=== PATIENT | female | born 1960 | race Caucasian/White ===

== ENCOUNTER → 2017-02-03 | Outpatient (CLI) | payer OTHER ==
[~2017-02-03] MED LIST: AMOXIL500 MG PO; ATIVAN1 MG PO; BENTYL10 MG; BENTYL10 MG PO; BRIN10TA PO; CIPRO500 MG PO; CLARITIN-D 10 M1 T21 PO; COMPAZINE10 M1 PO; COMPAZINE10 MG; CQ 10 PO; CYCLOBENZAPRINE10 MG PO; DEXILANT60 M1 PO; EFFEXOR XR75 MG PO; EFFEXOR-XR150 MG; FLAGYL500 MG PO; FLEXERIL10 MG PO; FOLIC ACID800 MCG PO; FOSAMAX70 M1 PO; HYDROCHLOROTHIA25 MG; IBU-200200 MG PO; LIDODERM 5% PATC1 EA PO; LIPITOR80 MG PO; LOMOTIL 0.025 M1 TA1 PO; MELATONIN10 M3 PO; MOBIC15 MG PO; MOTRIN800 MG PO; NORCO 5-325 TA1 EACH PO; Oscal,Oyster S500 MG PO; PERCOCET 325 MG1 TA2 PO; PERCOCET 325 MG1 TA5 PO; PRISTIQ50 MG PO; PROTONIX40 MG PO; RELIEF PO; RESTORIL30 MG; TESSALON PERLE200 MG PO; TRAMADOL HCL50 MG; TRAMADOL HCL50 MG PO; TRAZODO50 MG PO; TUMS500 MG PO; VITAMIN B121000 MC2 PO; VITAMIN D-32000 UNIT PO; VITAMIN D50000 I1 PO; VOLTAREN50 M1 PO; XANAX1 MG; ZANTAC 150150 MG PO; ZANTAC150 MG PO; [UNRECOGNIZED DRUG - OTHER]; [UNRECOGNIZED DRUG - OTHER] PO
== END | disposition home or self-care (01) ==
LOC: RAD 11:08
DX: M47.896 Other spondylosis, lumbar region (principal); M47.897 Other spondylosis, lumbosacral region; M47.892 Other spondylosis, cervical region; M54.6 Pain in thoracic spine; M25.522 Pain in left elbow; M25.521 Pain in right elbow

== ENCOUNTER 2017-04-08 15:34 | Inpatient (IN) | payer OTHER ==
[~2017-04-08] VITALS: Ht 165.1 cm; Wt 70.1 kg
--- NOTE | ~2017-04-08 | CON ---
[place], [place] REPORT OF CONSULTATION NAME: ЕЛЕНА SINGH UNIT #: [id number] ROOM: 518 DOCTOR: AVEL BALBUENA MDYADIDELLA BIRTHDATE: [birth year] DOS: 04/09/2017 HISTORY OF PRESENT ILLNESS: The patient has presented with multiple concerns, among which has been several bowel movements a day. The patient with a history of irritable bowel syndrome, past history of diverticulosis, has been several times scoped. I have scoped her [address] Weeks scoped her a few months ago and she has been scoped in [facility]. The patient was found to be hypokalemic and that is being addressed. Labs at the time of admission CBC; white blood cell was 8, H and H of 16 and 46. Comprehensive metabolic panel: Potassium 2.2, supplementation in progress. Liver function test except alkaline phosphatase 205. However, she is status post cholecystectomy. Magnesium and troponin normal. CT scan of the abdomen and pelvis, nonspecific, reading of mild colitis. Comprehensive metabolic panel, GFR normal. Hypokalemia continuous. C. diff and ova and parasite, have been all normal. PAST MEDICAL HISTORY: Associated with anxiety, fibromyalgia, irritable bowel syndrome, diverticulosis, migraine, cephalalgia, and posttraumatic stress disorder. PAST SURGICAL HISTORY: Status post cholecystectomy and minor left arm repair, lipoma removal, and T and A. SOCIAL HISTORY: He is still a smoker and drinks 4-6 cans of sodas daily. Does not drink alcohol. FAMILY HISTORY: Noncontributory. REVIEW OF SYSTEMS: HEENT: Denies double vision, blurred vision. RESPIRATORY: Denies shortness of breath acutely. CARDIOVASCULAR: Denies acute chest pain. DIGESTIVE SYSTEM: Intermittent diarrhea of severe degree. PHYSICAL EXAMINATION: HEENT: Head normocephalic, nontraumatic. Mouth and buccal mucosa benign. NECK: Supple, no thyromegaly, no cervical lymphadenopathy. CHEST: Symmetric anatomy, equal expansion. No wheeze, no rhonchi. HEART: Normal sinus rhythm, no gallop, no murmur. ABDOMEN: Soft. No hepato-organomegaly. Bowel sounds present. No pulsatile mass. EXTREMITIES: No cyanosis, no pedal edema. NEUROLOGIC: Alert, oriented to time, place, and person. IMPRESSION: Diarrhea, irritable bowel syndrome, diverticulosis, anxiety, severe hypokalemia. All has been recognized. This patient is known for several years with history of diarrhea. PLAN: I am going to follow up as outpatient on her with another colonoscopy as [place], [place] REPORT OF CONSULTATION NAME: ЕЛЕНА SINGH UNIT #: [id number] ROOM: 518 DOCTOR: ESHA ALY,CHELSY BIRTHDATE: [birth year] outpatient once her potassium was corrected. I was intentionally avoiding to ____ for cleansing purpose of colonoscopy until potassium is corrected and I am going to also start her on Questran 1 pack b.i.d. and Florastor 250 mg b.i.d. and while she is here I am going to trial of p.o. Flagyl, going to be implemented here. CHELSY BALBUENA MD CM:CONSTR:REPORT OF CONSULTATION 01 04/09/17 [id number] interface
--- NOTE | ~2017-04-08 | EKG ---
[place], [place] ELECTROCARDIOGRAM REPORT NAME: ЕЛЕНА SINGH UNIT #: [id number] ROOM: 518 DOCTOR: BHAKTI ALY,BRADEN BIRTHDATE: [birth year] DOS: 04/08/2017 TIME: 1714 Hours. IMPRESSION: 1. Normal sinus rhythm. 2. Anterolateral and inferior ST-T changes, consider ischemia. 3. Normal QT interval. 4. Incomplete right bundle branch block. BRADEN YA MD CM:EKGRPT:ELECTROCARDIOGRAM REPORT [id number] BRADEN YA MD
[2017-04-08 15:45] VITALS: BP 105/86
[2017-04-08] MEDS ORDERED: ATORVASTATIN CA40 M1 PO (15:49)
[2017-04-08] MEDS ORDERED: BUDEPRION XL150 MG PO (15:49)
[2017-04-08 16:32] LABS: BASO % 0.5 % (0.0-1.0); EOS # 0.1 10*3/uL (0.0-0.4); EOS % 1.5 % (1.0-4.0); HEMATOCRIT 46.8 % (37.0-47.0); HEMOGLOBIN 16.2 g/dl (12.0-16.0); LYMPH # 2.4 10*3/uL (1.3-4.4); LYMPH % 27.6 % (27.0-41.0); MEAN CELL VOLUME 93.8 fl (81.0-99.0); MEAN CORPUSCULAR HGB 32.5 pg (27.0-31.0); MEAN CORPUSCULAR HGB CONC 34.6 g/dl (33.0-37.0); MEAN PLATELET VOLUME 9.1 fl (9.6-12.3); MONO # 0.3 10*3/uL (0.1-1.0); MONO % 3.5 % (3.0-9.0); NEUT # 5.8 10*3/uL (2.3-7.9); NEUT % 66.7 % (47.0-73.0); PLATELET COUNT AUTOMATED 336 10*3/uL (130-400); RED BLOOD COUNT 4.99 10*6/uL (4.10-5.10); RED CELL DISTRI WIDTH 12.6 % (0-14.5); WHITE BLOOD COUNT 8.7 10*3/uL (4.8-10.8)
[2017-04-08 16:47] LABS: ALBUMIN 3.4 gm/dl (3.1-4.5); ALKALINE PHOSPHATASE 205 U/L (45-117); BUN 14 mg/dl (7-24); CHLORIDE 101 mmol/L (98-107); CREATININE 0.69 mg/dL (0.55-1.02); LIPASE 133 U/L (73-393); SGOT/AST 11 IU/L (3-35); SGPT/ALT 14 U/L (12-78); SODIUM 141 mmol/L (136-145); TOTAL PROTEIN 7.1 gm/dL (6.4-8.2)
[2017-04-08 16:49] LABS: POTASSIUM 2.2 mmol/L (3.5-5.1)
[2017-04-08 17:20] LABS: TROPONIN I < 0.015 ng/ml (<0.045)
[2017-04-08 18:24] VITALS: BP 106/62
[2017-04-08 20:00] VITALS: BP 127/63
[2017-04-08 22:17] LABS: BILIRUBIN 1+ (NEGATIVE); BLOOD NEGATIVE (NEGATIVE); CLARITY SL CLOUDY (CLEAR); COLOR YELLOW (YELLOW); GLUCOSE NEGATIVE (NEGATIVE); KETONE 3+ (NEGATIVE); LEUKO ESTERASE NEGATIVE (NEGATIVE); NITRITE NEGATIVE (NEGATIVE); PH 5.5 (5.0-9.0); SPECIFIC GRAVITY 1.025 (1.005-1.030); UROBILINOGEN 0.2 E.U./dl (0.2-1.0)
[2017-04-08 22:26] LABS: EPITHELIAL CELLS 15-20; MUCOUS 1+; WBC 0-2 wbc/hpf (0-5)
[2017-04-09] VITALS: BP 105/57
[2017-04-09 04:47] LABS: BASO # 0.1 10*3/uL (0.0-0.1); BASO % 0.8 % (0.0-1.0); EOS # 0.2 10*3/uL (0.0-0.4); EOS % 3.7 % (1.0-4.0); HEMATOCRIT 43.6 % (37.0-47.0); HEMOGLOBIN 14.8 g/dl (12.0-16.0); LYMPH % 47.9 % (27.0-41.0); MEAN CELL VOLUME 95.6 fl (81.0-99.0); MEAN CORPUSCULAR HGB 32.5 pg (27.0-31.0); MEAN CORPUSCULAR HGB CONC 33.9 g/dl (33.0-37.0); MEAN PLATELET VOLUME 9.3 fl (9.6-12.3); MONO # 0.4 10*3/uL (0.1-1.0); MONO % 5.7 % (3.0-9.0); NEUT # 2.6 10*3/uL (2.3-7.9); NEUT % 41.9 % (47.0-73.0); PLATELET COUNT AUTOMATED 290 10*3/uL (130-400); RED BLOOD COUNT 4.56 10*6/uL (4.10-5.10); RED CELL DISTRI WIDTH 12.6 % (0-14.5); WHITE BLOOD COUNT 6.3 10*3/uL (4.8-10.8)
[2017-04-09 05:12] LABS: ACT PARTIAL THROMBO TIME 24.8 SECONDS (20.8-31.5); INTERNATIONAL NORM RATIO 1.1 (2.0-3.5)
[2017-04-09 05:15] LABS: ALKALINE PHOSPHATASE 179 U/L (45-117); BUN 11 mg/dl (7-24); CHLORIDE 104 mmol/L (98-107); CREATININE 0.64 mg/dL (0.55-1.02); PHOSPHOROUS 2.7 mg/dL (2.5-4.9); POTASSIUM 2.5 mmol/L (3.5-5.1); SGOT/AST 14 IU/L (3-35); SGPT/ALT 13 U/L (12-78); SODIUM 144 mmol/L (136-145); TOTAL PROTEIN 6.2 gm/dL (6.4-8.2)
[2017-04-09 07:08] LABS: VITAMIN D, 25-HYDROXY 27.5 ng/mL (30-100)
[2017-04-09 08:00] VITALS: BP 111/56
[2017-04-09 12:00] VITALS: BP 107/50
[2017-04-09 16:00] VITALS: BP 102/58
[2017-04-09 20:08] VITALS: BP 118/60
[2017-04-10] VITALS: BP 91/43
[2017-04-10 06:08] LABS: BASO # 0.1 10*3/uL (0.0-0.1); EOS # 0.2 10*3/uL (0.0-0.4); HEMATOCRIT 38.9 % (37.0-47.0); HEMOGLOBIN 13.2 g/dl (12.0-16.0); LYMPH # 2.2 10*3/uL (1.3-4.4); LYMPH % 41.8 % (27.0-41.0); MEAN CORPUSCULAR HGB 33.2 pg (27.0-31.0); MEAN CORPUSCULAR HGB CONC 33.9 g/dl (33.0-37.0); MEAN PLATELET VOLUME 9.9 fl (9.6-12.3); MONO # 0.3 10*3/uL (0.1-1.0); MONO % 4.8 % (3.0-9.0); NEUT # 2.5 10*3/uL (2.3-7.9); NEUT % 48.2 % (47.0-73.0); PLATELET COUNT AUTOMATED 259 10*3/uL (130-400); RED BLOOD COUNT 3.97 10*6/uL (4.10-5.10); RED CELL DISTRI WIDTH 12.8 % (0-14.5); WHITE BLOOD COUNT 5.2 10*3/uL (4.8-10.8)
[2017-04-10 06:30] LABS: ALBUMIN 2.7 gm/dl (3.1-4.5); BUN 5 mg/dl (7-24); CHLORIDE 110 mmol/L (98-107); CREATININE 0.59 mg/dL (0.55-1.02); PHOSPHOROUS 2.5 mg/dL (2.5-4.9); POTASSIUM 2.9 mmol/L (3.5-5.1); SGOT/AST 9 IU/L (3-35); SGPT/ALT 7 U/L (12-78); SODIUM 145 mmol/L (136-145)
[2017-04-10 06:34] LABS: ALKALINE PHOSPHATASE 145 U/L (45-117); TOTAL PROTEIN 5.5 gm/dL (6.4-8.2)
[2017-04-10 08:00] VITALS: BP 123/59
[2017-04-10 16:00] VITALS: BP 124/58
[2017-04-10 20:00] VITALS: BP 115/58
[2017-04-11] VITALS: BP 121/57
[2017-04-11 06:36] LABS: BUN 6 mg/dl (7-24); CHLORIDE 113 mmol/L (98-107); CREATININE 0.65 mg/dL (0.55-1.02); POTASSIUM 3.6 mmol/L (3.5-5.1); SODIUM 147 mmol/L (136-145)
[2017-04-11 08:00] VITALS: BP 105/60
[2017-04-11 16:00] VITALS: BP 140/69
[2017-04-11 20:00] VITALS: BP 136/66
[2017-04-12] VITALS: BP 111/56
[2017-04-12 06:38] LABS: BUN 5 mg/dl (7-24); CHLORIDE 113 mmol/L (98-107); CREATININE 0.63 mg/dL (0.55-1.02); POTASSIUM 3.4 mmol/L (3.5-5.1); SODIUM 145 mmol/L (136-145)
[2017-04-12 08:00] VITALS: BP 113/62
[2017-04-12] MEDS ORDERED: KLOR-CON M2020 ME1 PO (12:10)
[2017-04-12] MEDS ORDERED: LACTINEX 0.2 MG1 TAB PO (12:10)
[2017-04-12] MEDS ORDERED: ZANTAC 150150 MG PO (12:10)
[2017-04-12] MEDS ORDERED: VITAMIN D-32000 UNI1 PO (12:10)
[2017-04-12] MEDS ORDERED: FLAGYL500 MG PO (12:10)
== END 2017-04-12 13:10 | disposition home or self-care (01) | DRG 391 ==
LOC: ED 15:34 → 5E 18:20 → EDHOLD 18:20 → 5E 18:48
PROVIDERS: Family Medicine; Internal Medicine; Nurse Practitioner Family
DX: K52.9 Noninfective gastroenteritis and colitis, unspecified (principal); E43 Unspecified severe protein-calorie malnutrition; D75.1 Secondary polycythemia; E87.8 Other disorders of electrolyte and fluid balance, not elsewhere classified; F33.9 Major depressive disorder, recurrent, unspecified; E86.0 Dehydration; E87.6 Hypokalemia; M79.7 Fibromyalgia; F43.10 Post-traumatic stress disorder, unspecified; F41.1 Generalized anxiety disorder; K57.30 Diverticulosis of large intestine without perforation or abscess without bleeding; K21.9 Gastro-esophageal reflux disease without esophagitis; M19.90 Unspecified osteoarthritis, unspecified site; G43.909 Migraine, unspecified, not intractable, without status migrainosus; R73.9 Hyperglycemia, unspecified; R74.8 Abnormal levels of other serum enzymes; E78.5 Hyperlipidemia, unspecified; D72.820 Lymphocytosis (symptomatic); E55.9 Vitamin D deficiency, unspecified; Z71.6 Tobacco abuse counseling; Z88.2 Allergy status to sulfonamides; Z79.899 Other long term (current) drug therapy; Z86.018 Personal history of other benign neoplasm; Z90.49 Acquired absence of other specified parts of digestive tract; Z82.49 Family history of ischemic heart disease and other diseases of the circulatory system; Z82.61 Family history of arthritis; Z82.5 Family history of asthma and other chronic lower respiratory diseases; Z83.3 Family history of diabetes mellitus; Z79.82 Long term (current) use of aspirin; Z68.25 Body mass index [BMI] 25.0-25.9, adult

== ENCOUNTER → 2017-04-14 | Outpatient (CLI) | payer OTHER ==
[~2017-04-14] MED LIST changes: +ATORVASTATIN CA40 M1 PO; +BUDEPRION XL150 MG PO; +KLOR-CON M2020 ME1 PO; +LACTINEX 0.2 MG1 TAB PO; +VITAMIN D-32000 UNI1 PO
[2017-04-14 11:21] LABS: BUN 5 mg/dl (7-24); CHLORIDE 110 mmol/L (98-107); CREATININE 0.72 mg/dL (0.55-1.02); POTASSIUM 4.6 mmol/L (3.5-5.1); SODIUM 142 mmol/L (136-145)
== END | disposition home or self-care (01) ==
LOC: LAB 10:46
PROVIDERS: Internal Medicine
DX: E87.6 Hypokalemia (principal)

== ENCOUNTER → 2017-06-02 | Day surgery (SDC) | payer MEDICARE, MEDICAID ==
[~2017-06-02] VITALS: Ht 165.1 cm; Wt 70.3 kg
[~2017-06-02] MED LIST changes: +DICYCLOMINE HYD10 MG PO
--- NOTE | ~2017-06-02 | O ---
[place], [place] OPERATIVE NOTE NAME: ЕЛЕНА SINGH UNIT #: [id number] ROOM: DOCTOR: CHELSY BALBUENA MD BIRTHDATE: [birth year] DOS: 06/02/2017 INDICATIONS: This is a 56-year-old patient who presented with chief complaint of diarrhea, change in bowel habit, undergoing investigation. ALLERGIES: SULFA. PAST MEDICAL HISTORY: Fibromyalgia, irritable bowel syndrome, migraine, cephalalgia, anxiety. PAST SURGICAL HISTORY: Cholecystectomy, left arm minor repair and T and A. SOCIAL HISTORY: Active smoker, nonalcohol consumer, drinks 4-6 cans of soda. PROCEDURE: Today's procedure part of investigation is colonoscopy plus biopsy. PREMEDICATION: Versed and Diprivan. SCOPE: Olympus forwarding-viewing colonoscope 10L video. REPORT: After putting the patient in left lateral position and application of lubricant to rectal pouch and digital examination, scope was introduced. Thereafter, under direct visualization, advanced through the length of colon without difficulty. Base of the cecum explored, appendiceal orifice identified, ileocecal valve, photographed. Terminal ileoscopy was performed and we advanced the scope to the terminal ileum about 20 cm, there was absolutely no evidence of Crohn's disease in terminal ileum. The scope was withdrawn from ascending, transverse colon. Random biopsy of transverse colon obtained ruling out collagenous colitis. Air was suctioned out. The patient was extubated, tolerated procedure well. IMPRESSION: Diverticulosis, sigmoid colon, status post random biopsy of the transverse colon ruling out collagenous colitis. PLAN AND DISCUSSION: This patient has irritable bowel syndrome with diarrhea dominance. I am going to start her on dicyclomine 10 mg 1 every day, which is going to be helpful. She is going to be advised to abstain from smoking and carbonated sodas particularly that she consumes 4-6 cans day and follow up routinely with you in office and p.r.n. visit with us in [facility]. I thank you very much indeed for your kind referral. [place], [place] OPERATIVE NOTE NAME: ЕЛЕНА SINGH UNIT #: [id number] ROOM: DOCTOR: CHELSY BALBUENA MD BIRTHDATE: [birth year] CHELSY BALBUENA MD CM:MARINA:OPERATIVE NOTE [id number] SAHIL MURRAY MD 06/02/17 1449 interface
[2017-06-02 08:58] VITALS: BP 104/59
[2017-06-02 09:34] VITALS: BP 112/93
[2017-06-02 09:45] VITALS: BP 104/58
[2017-06-02 09:59] VITALS: BP 111/55
== END ==
LOC: SDC 05-28 11:45
DX: K57.30 Diverticulosis of large intestine without perforation or abscess without bleeding (principal); K51.90 Ulcerative colitis, unspecified, without complications; K21.9 Gastro-esophageal reflux disease without esophagitis; F41.9 Anxiety disorder, unspecified; F32.9 Major depressive disorder, single episode, unspecified; G43.909 Migraine, unspecified, not intractable, without status migrainosus; Z98.890 Other specified postprocedural states; Z82.49 Family history of ischemic heart disease and other diseases of the circulatory system; Z90.49 Acquired absence of other specified parts of digestive tract; F17.210 Nicotine dependence, cigarettes, uncomplicated

== ENCOUNTER → 2017-07-21 | Outpatient (CLI) | payer MEDICARE, OTHER ==
[2017-07-21 09:53] LABS: BASO # 0.1 10*3/uL (0.0-0.1); BASO % 0.9 % (0.0-1.0); EOS # 0.2 10*3/uL (0.0-0.4); EOS % 2.5 % (1.0-4.0); HEMATOCRIT 51.9 % (37.0-47.0); HEMOGLOBIN 17.1 g/dl (12.0-16.0); LYMPH # 3.3 10*3/uL (1.3-4.4); LYMPH % 34.3 % (27.0-41.0); MEAN CELL VOLUME 99.6 fl (81.0-99.0); MEAN CORPUSCULAR HGB 32.8 pg (27.0-31.0); MEAN CORPUSCULAR HGB CONC 32.9 g/dl (33.0-37.0); MEAN PLATELET VOLUME 9.2 fl (9.6-12.3); MONO # 0.4 10*3/uL (0.1-1.0); MONO % 3.8 % (3.0-9.0); NEUT # 5.6 10*3/uL (2.3-7.9); NEUT % 58.2 % (47.0-73.0); PLATELET COUNT AUTOMATED 326 10*3/uL (130-400); RED BLOOD COUNT 5.21 10*6/uL (4.10-5.10); RED CELL DISTRI WIDTH 12.8 % (0-14.5); WHITE BLOOD COUNT 9.7 10*3/uL (4.8-10.8)
[2017-07-21 10:24] LABS: ALBUMIN 4.1 gm/dl (3.1-4.5); ALKALINE PHOSPHATASE 179 U/L (45-117); BUN 12 mg/dl (7-24); CHLORIDE 108 mmol/L (98-107); CHOLESTEROL 190 mg/dL (<200); CREATININE 0.84 mg/dL (0.55-1.02); HDL CHOLESTEROL 58 mg/dl (40-60); LDL CHOLESTEROL 109 mg/dL (9-159); POTASSIUM 3.9 mmol/L (3.5-5.1); SGOT/AST 16 IU/L (3-35); SGPT/ALT 27 U/L (12-78); SODIUM 140 mmol/L (136-145); TOTAL PROTEIN 8.2 gm/dL (6.4-8.2); TRIGLYCERIDES 117 mg/dl (<150); VLDL CHOLESTEROL 23 mg/dL (6-40)
== END | disposition home or self-care (01) ==
LOC: LAB 09:30
PROVIDERS: Internal Medicine
DX: E78.2 Mixed hyperlipidemia (principal); E55.9 Vitamin D deficiency, unspecified

== ENCOUNTER → 2017-07-22 | Outpatient (CLI) | payer MEDICARE, OTHER | END | disposition home or self-care (01) | LOC: MAMMO 07-21 09:29 | DX: Z12.31 Encounter for screening mammogram for malignant neoplasm of breast (principal) ==

== ENCOUNTER 2017-09-19 14:16 | Emergency (ER) | payer MEDICARE, OTHER ==
[~2017-09-19] VITALS: Wt 68.0 kg
[2017-09-19] MEDS ORDERED: FOSAMAX70 M1 PO (14:27)
[2017-09-19] MEDS ORDERED: ABILIFY2 MG PO (14:27)
[2017-09-19 15:13] LABS: BASO # 0.1 10*3/uL (0.0-0.1); BASO % 0.7 % (0.0-1.0); EOS # 0.1 10*3/uL (0.0-0.4); EOS % 1.2 % (1.0-4.0); HEMATOCRIT 46.2 % (37.0-47.0); HEMOGLOBIN 15.6 g/dl (12.0-16.0); LYMPH # 2.7 10*3/uL (1.3-4.4); LYMPH % 36.6 % (27.0-41.0); MEAN CELL VOLUME 97.9 fl (81.0-99.0); MEAN CORPUSCULAR HGB 33.1 pg (27.0-31.0); MEAN CORPUSCULAR HGB CONC 33.8 g/dl (33.0-37.0); MEAN PLATELET VOLUME 9.4 fl (9.6-12.3); MONO # 0.3 10*3/uL (0.1-1.0); MONO % 3.6 % (3.0-9.0); NEUT # 4.2 10*3/uL (2.3-7.9); NEUT % 57.6 % (47.0-73.0); PLATELET COUNT AUTOMATED 310 10*3/uL (130-400); RED BLOOD COUNT 4.72 10*6/uL (4.10-5.10); RED CELL DISTRI WIDTH 12.1 % (0-14.5); WHITE BLOOD COUNT 7.3 10*3/uL (4.8-10.8)
[2017-09-19 15:14] LABS: BILIRUBIN 1+ (NEGATIVE); BLOOD NEGATIVE (NEGATIVE); CLARITY SL CLOUDY (CLEAR); COLOR YELLOW (YELLOW); GLUCOSE NEGATIVE (NEGATIVE); KETONE 1+ (NEGATIVE); LEUKO ESTERASE NEGATIVE (NEGATIVE); NITRITE NEGATIVE (NEGATIVE); PH 5.5 (5.0-9.0); SPECIFIC GRAVITY >= 1.030 (1.005-1.030)
[2017-09-19 15:22] LABS: MUCOUS 1+
[2017-09-19 15:28] LABS: ALBUMIN 3.7 gm/dl (3.1-4.5); ALKALINE PHOSPHATASE 138 U/L (45-117); BUN 17 mg/dl (7-24); CHLORIDE 111 mmol/L (98-107); CREATININE 0.69 mg/dL (0.55-1.02); POTASSIUM 3.1 mmol/L (3.5-5.1); SGOT/AST 13 IU/L (3-35); SGPT/ALT 15 U/L (12-78); SODIUM 142 mmol/L (136-145); TOTAL PROTEIN 7.2 gm/dL (6.4-8.2)
[2017-09-19] MEDS ORDERED: DICYCLOMINE HYD10 MG PO (16:53)
[2017-09-19] MEDS ORDERED: K-TAB20 MEQ PO (16:53)
== END 2017-09-19 16:59 | disposition home or self-care (01) ==
LOC: ED 14:16
PROVIDERS: Physician Assistant
DX: E87.6 Hypokalemia (principal); R19.7 Diarrhea, unspecified; R10.31 Right lower quadrant pain; R10.32 Left lower quadrant pain; F17.200 Nicotine dependence, unspecified, uncomplicated; Z90.49 Acquired absence of other specified parts of digestive tract; Z79.899 Other long term (current) drug therapy; Z88.2 Allergy status to sulfonamides; Z88.5 Allergy status to narcotic agent

== ENCOUNTER → 2017-09-22 | Outpatient (CLI) | payer MEDICARE, OTHER ==
[~2017-09-22] MED LIST changes: +ABILIFY2 MG PO; +K-TAB20 MEQ PO
[2017-09-22 11:06] LABS: ALBUMIN 3.9 gm/dl (3.1-4.5); ALKALINE PHOSPHATASE 139 U/L (45-117); BUN 13 mg/dl (7-24); CHLORIDE 113 mmol/L (98-107); CREATININE 0.71 mg/dL (0.55-1.02); POTASSIUM 3.5 mmol/L (3.5-5.1); SGOT/AST 15 IU/L (3-35); SGPT/ALT 15 U/L (12-78); SODIUM 143 mmol/L (136-145); TOTAL PROTEIN 7.4 gm/dL (6.4-8.2)
[2017-09-22 12:31] LABS: VITAMIN D, 25-HYDROXY 36.7 ng/mL (30-100)
== END | disposition home or self-care (01) ==
LOC: LAB 10:17
PROVIDERS: Nurse Practitioner Women's Health
DX: K21.9 Gastro-esophageal reflux disease without esophagitis (principal); F41.8 Other specified anxiety disorders; E55.9 Vitamin D deficiency, unspecified

== ENCOUNTER → 2018-02-14 | Outpatient (CLI) | payer MEDICARE, OTHER | END | disposition home or self-care (01) | LOC: RAD 10:33 | DX: Z23 Encounter for immunization (principal); Z72.0 Tobacco use ==

== ENCOUNTER 2018-05-24 11:03 | Emergency (ER) | payer MEDICARE, OTHER ==
[~2018-05-24] VITALS: Ht 165.1 cm; Wt 59.0 kg
[2018-05-24] MEDS ORDERED: PREDNISONE50 MG PO (13:10)
[2018-05-24] MEDS ORDERED: NAPROSYN500 MG PO (13:11)
[2018-10-16] MEDS ORDERED: NAPROSYN500 MG PO (15:22)
[2018-10-16] MEDS ORDERED: CHLORZOXAZONE500 M2 PO (15:22)
[2018-10-16] MEDS ORDERED: PREDNISONE10 MG PO (17:25)
== END 2018-05-24 13:28 | disposition home or self-care (01) ==
LOC: ED 11:03
DX: M54.5 Low back pain (principal); M54.6 Pain in thoracic spine; M81.0 Age-related osteoporosis without current pathological fracture; F17.200 Nicotine dependence, unspecified, uncomplicated; Z90.49 Acquired absence of other specified parts of digestive tract; Z88.2 Allergy status to sulfonamides; Z88.8 Allergy status to other drugs, medicaments and biological substances; Z79.899 Other long term (current) drug therapy

== ENCOUNTER 2019-02-14 11:12 | Emergency (ER) | payer MEDICARE, OTHER ==
[~2019-02-14] VITALS: Ht 165.1 cm; Wt 63.0 kg
[~2019-02-14 11:12] MED LIST changes: +CHLORZOXAZONE500 M2 PO; +NAPROSYN500 MG PO; +PREDNISONE10 MG PO; +PREDNISONE50 MG PO
[2019-02-14] MEDS ORDERED: Motrin,Rufen800 MG PO (14:01)
== END 2019-02-14 14:05 | disposition home or self-care (01) ==
LOC: ED 11:12
DX: S92.424A Nondisplaced fracture of distal phalanx of right great toe, initial encounter for closed fracture (principal); S80.01XA Contusion of right knee, initial encounter; S00.12XA Contusion of left eyelid and periocular area, initial encounter; S80.02XA Contusion of left knee, initial encounter; S09.90XA Unspecified injury of head, initial encounter; M79.7 Fibromyalgia; M81.0 Age-related osteoporosis without current pathological fracture; G43.909 Migraine, unspecified, not intractable, without status migrainosus; K21.9 Gastro-esophageal reflux disease without esophagitis; E78.5 Hyperlipidemia, unspecified; F17.200 Nicotine dependence, unspecified, uncomplicated; Z88.2 Allergy status to sulfonamides; Z88.8 Allergy status to other drugs, medicaments and biological substances; Z79.899 Other long term (current) drug therapy; W18.09XA Striking against other object with subsequent fall, initial encounter; Y93.89 Activity, other specified; Y92.098 Other place in other non-institutional residence as the place of occurrence of the external cause; Y99.8 Other external cause status

== ENCOUNTER → 2019-04-17 | Outpatient (CLI) | payer MEDICARE, OTHER ==
[~2019-04-17] MED LIST changes: +BENTYL PO; +CALCIUM CITRAT1 EAC9 PO; +GLYDO11 ML TP; +LEXAPRO20 MG PO; +MYLANTA MAXIMU355 M1 PO; +Motrin,Rufen800 MG PO; +VITAMIN D50000 UNIT PO
--- NOTE | 2019-04-17 11:00 | NUR ---
INFORMED SIGNED CONSENT OBTAINED FOR LEXISCAN STRESS TEST WITH DR YA. RESTING EKG SINUS BRADYCARDIA HR 60 BP 124/80. PULSE OX 99% LUNGS CLEAR. PT COMPLETED ONE MINUTE OF A LEXISCAN PROTOCOL WITH PT RECEIVING LEXISCAN 0.4MG IV OVER 10 SECONDS. NO ARRHYTHMIA NOTED NO ST CHANGES SEEN. PT C/O NAUSEA AND DIZZINESS WITH INJECTION. LAST RECOVERY HR OF 86 BP 110/64. PT IN STABLE CONDITION, AWAITING NUCLEAR IMAGES.
== END | disposition home or self-care (01) ==
LOC: CARD 01:04
DX: R07.9 Chest pain, unspecified (principal); S92.405B Nondisplaced unspecified fracture of left great toe, initial encounter for open fracture; M81.0 Age-related osteoporosis without current pathological fracture; K21.9 Gastro-esophageal reflux disease without esophagitis; M54.2 Cervicalgia

== ENCOUNTER → 2019-10-23 | Outpatient (CLI) | payer MEDICARE, OTHER | END | disposition home or self-care (01) | LOC: MAMMO 09-21 11:30 | DX: Z12.31 Encounter for screening mammogram for malignant neoplasm of breast (principal); J44.9 Chronic obstructive pulmonary disease, unspecified; M81.0 Age-related osteoporosis without current pathological fracture; R10.2 Pelvic and perineal pain ==

== ENCOUNTER 2019-10-25 18:33 | Emergency (ER) | payer MEDICARE, OTHER ==
[~2019-10-25] VITALS: Wt 68.5 kg
[2019-10-25 20:12] LABS: BASO # 0.1 10*3/uL (0.0-0.1); BASO % 0.7 % (0.0-1.0); EOS # 0.1 10*3/uL (0.0-0.4); EOS % 1.8 % (1.0-4.0); HEMATOCRIT 46.4 % (37.0-47.0); LYMPH # 2.7 10*3/uL (1.3-4.4); LYMPH % 36.6 % (27.0-41.0); MEAN CELL VOLUME 100.4 fl (81.0-99.0); MEAN CORPUSCULAR HGB 33.1 pg (27.0-31.0); MEAN PLATELET VOLUME 9.1 fl (9.6-12.3); MONO # 0.4 10*3/uL (0.1-1.0); MONO % 5.4 % (3.0-9.0); NEUT % 55.2 % (47.0-73.0); PLATELET COUNT AUTOMATED 257 10*3/uL (130-400); RED BLOOD COUNT 4.62 10*6/uL (4.10-5.10); RED CELL DISTRI WIDTH 12.3 % (0-14.5); WHITE BLOOD COUNT 7.3 10*3/uL (4.8-10.8)
[2019-10-25 20:26] LABS: ALBUMIN 3.3 gm/dl (3.1-4.5); ALKALINE PHOSPHATASE 100 U/L (45-117); BUN 14 mg/dl (7-24); CHLORIDE 109 mmol/L (98-107); POTASSIUM 3.9 mmol/L (3.5-5.1); SGOT/AST 13 IU/L (3-35); SGPT/ALT 15 U/L (12-78); SODIUM 140 mmol/L (136-145); TOTAL PROTEIN 6.8 gm/dL (6.4-8.2)
[2019-10-25 20:48] LABS: BILIRUBIN NEGATIVE (NEGATIVE); BLOOD NEGATIVE (NEGATIVE); CLARITY CLEAR (CLEAR); COLOR YELLOW (YELLOW); GLUCOSE NEGATIVE (NEGATIVE); KETONE 2+ (NEGATIVE); UROBILINOGEN 0.2 E.U./dl (0.2-1.0)
[2019-10-25 20:49] LABS: BACTERIA 1+; LEUKO ESTERASE TRACE (NEGATIVE); MUCOUS 1+; NITRITE NEGATIVE (NEGATIVE)
[2019-10-26] MEDS ORDERED: FLAGYL500 MG PO (00:07)
== END 2019-10-26 00:28 | disposition home or self-care (01) ==
LOC: ED 18:33
PROVIDERS: Emergency Medicine
DX: K57.90 Diverticulosis of intestine, part unspecified, without perforation or abscess without bleeding (principal); R19.7 Diarrhea, unspecified; M19.90 Unspecified osteoarthritis, unspecified site; K21.9 Gastro-esophageal reflux disease without esophagitis; E78.5 Hyperlipidemia, unspecified; M79.7 Fibromyalgia; G43.909 Migraine, unspecified, not intractable, without status migrainosus; F17.200 Nicotine dependence, unspecified, uncomplicated; Z88.2 Allergy status to sulfonamides; Z88.8 Allergy status to other drugs, medicaments and biological substances; Z79.899 Other long term (current) drug therapy

== ENCOUNTER → 2020-10-23 | Outpatient (CLI) | payer MEDICARE, OTHER | END | disposition home or self-care (01) | LOC: MAMMO 10:09 | PROVIDERS: ATTEND Physician Assistant | DX: Z12.31 Encounter for screening mammogram for malignant neoplasm of breast (principal); N64.89 Other specified disorders of breast ==

== ENCOUNTER → 2021-01-16 | Outpatient (CLI) | payer MEDICARE, OTHER ==
[2021-01-16 10:06] VITALS: BP 100/39
== END | disposition home or self-care (01) ==
LOC: INJECTION 00:38
PROVIDERS: ATTEND Physician Assistant
DX: M81.0 Age-related osteoporosis without current pathological fracture (principal); K21.9 Gastro-esophageal reflux disease without esophagitis; F41.9 Anxiety disorder, unspecified; G43.909 Migraine, unspecified, not intractable, without status migrainosus; G62.9 Polyneuropathy, unspecified; F17.200 Nicotine dependence, unspecified, uncomplicated

== ENCOUNTER 2021-03-23 11:20 | Emergency (ER) | payer MEDICARE, OTHER ==
[~2021-03-23] VITALS: Wt 58.5 kg
[2021-03-23 13:11] LABS: BASO # 0.1 10*3/uL (0.0-0.1); BASO % 0.8 % (0.0-1.0); EOS # 0.1 10*3/uL (0.0-0.4); EOS % 1.5 % (1.0-4.0); HEMATOCRIT 46.6 % (37.0-47.0); LYMPH # 2.3 10*3/uL (1.3-4.4); MEAN CORPUSCULAR HGB 33.5 pg (27.0-31.0); MEAN CORPUSCULAR HGB CONC 32.8 g/dl (33.0-37.0); MONO # 0.3 10*3/uL (0.1-1.0); MONO % 4.3 % (3.0-9.0); NEUT # 3.8 10*3/uL (2.3-7.9); NEUT % 58.2 % (47.0-73.0); PLATELET COUNT AUTOMATED 276 10*3/uL (130-400); RED BLOOD COUNT 4.57 10*6/uL (4.10-5.10); WHITE BLOOD COUNT 6.5 10*3/uL (4.8-10.8)
[2021-03-23 13:28] LABS: ALBUMIN 3.1 gm/dl (3.1-4.5); ALKALINE PHOSPHATASE 79 U/L (45-117); BUN 16 mg/dl (7-24); CHLORIDE 114 mmol/L (98-107); CREATININE 0.63 mg/dL (0.55-1.02); LIPASE 97 U/L (73-393); POTASSIUM 3.6 mmol/L (3.5-5.1); SGOT/AST 11 IU/L (3-35); SGPT/ALT 13 U/L (12-78); SODIUM 142 mmol/L (136-145); TOTAL PROTEIN 6.8 gm/dL (6.4-8.2)
[2021-03-23 16:11] LABS: BILIRUBIN Negative (Negative); BLOOD Negative (Negative); CLARITY Clear (Clear); COLOR Yellow (Yellow); GLUCOSE Negative (Negative); KETONE Trace (Negative); LEUKO ESTERASE Negative (Negative); NITRITE Negative (Negative); SPECIFIC GRAVITY >= 1.030 (1.001-1.030); UROBILINOGEN 0.2 E.U./dl (0.0-1.0)
[2021-03-23 16:22] LABS: EPITHELIAL CELLS 0-2; WBC 0-2 wbc/hpf (0-5)
[2021-03-23 16:23] LABS: HYALINE CAST 0-2
== END 2021-03-23 17:09 | disposition home or self-care (01) ==
LOC: ED 11:20
PROVIDERS: Physician Assistant
DX: R10.84 Generalized abdominal pain (principal); R19.7 Diarrhea, unspecified; Z88.2 Allergy status to sulfonamides; Z88.8 Allergy status to other drugs, medicaments and biological substances; Z79.899 Other long term (current) drug therapy; F17.200 Nicotine dependence, unspecified, uncomplicated

== ENCOUNTER → 2021-05-28 | Outpatient (CLI) | payer MEDICARE, OTHER | END | disposition home or self-care (01) | LOC: LAB 12:00 | PROVIDERS: ATTEND Physician Assistant | DX: M81.0 Age-related osteoporosis without current pathological fracture (principal); K58.0 Irritable bowel syndrome with diarrhea; G89.29 Other chronic pain; J44.9 Chronic obstructive pulmonary disease, unspecified; K21.9 Gastro-esophageal reflux disease without esophagitis; F17.210 Nicotine dependence, cigarettes, uncomplicated ==

== ENCOUNTER → 2021-07-18 | Outpatient (CLI) | payer MEDICARE, OTHER ==
[~2021-07-18] MED LIST changes: +ISO D3 2,000 U1 EACH PO; -VITAMIN D50000 UNIT PO
== END | disposition home or self-care (01) ==
LOC: INJECTION 07-17 11:01
PROVIDERS: ATTEND Physician Assistant
DX: M81.0 Age-related osteoporosis without current pathological fracture (principal); K21.9 Gastro-esophageal reflux disease without esophagitis; G43.909 Migraine, unspecified, not intractable, without status migrainosus; M79.7 Fibromyalgia; F17.200 Nicotine dependence, unspecified, uncomplicated

== ENCOUNTER → 2021-10-27 | Outpatient (CLI) | payer MEDICARE, OTHER | LOC: MAMMO 10-22 10:30 | PROVIDERS: ATTEND Physician Assistant | DX: Z12.31 Encounter for screening mammogram for malignant neoplasm of breast (principal) ==

== ENCOUNTER 2021-11-15 13:59 | Inpatient (IN) | payer MEDICARE, OTHER ==
[~2021-11-15] VITALS: Ht 165.1 cm; Wt 55.0 kg
[2021-11-15 14:10] VITALS: BP 142/48
[2021-11-15 15:07] LABS: BASO # 0.1 10*3/uL (0.0-0.1); BASO % 0.7 % (0.0-1.0); EOS # 0.2 10*3/uL (0.0-0.4); EOS % 1.8 % (1.0-4.0); HEMATOCRIT 40.2 % (37.0-47.0); LYMPH # 1.2 10*3/uL (1.3-4.4); MEAN CELL VOLUME 101.5 fl (81.0-99.0); MEAN CORPUSCULAR HGB 33.8 pg (27.0-31.0); MEAN CORPUSCULAR HGB CONC 33.3 g/dl (33.0-37.0); MEAN PLATELET VOLUME 9.4 fl (9.6-12.3); MONO # 0.4 10*3/uL (0.1-1.0); MONO % 3.7 % (3.0-9.0); NEUT # 8.8 10*3/uL (2.3-7.9); NEUT % 82.3 % (47.0-73.0); PLATELET COUNT AUTOMATED 228 10*3/uL (130-400); RED BLOOD COUNT 3.96 10*6/uL (4.10-5.10); RED CELL DISTRI WIDTH 12.4 % (0-14.5); WHITE BLOOD COUNT 10.7 10*3/uL (4.8-10.8)
[2021-11-15 15:32] LABS: ALKALINE PHOSPHATASE 106 U/L (45-117); BUN 14 mg/dl (7-24); CHLORIDE 109 mmol/L (98-107); LIPASE 94 U/L (73-393); POTASSIUM 3.3 mmol/L (3.5-5.1); SGOT/AST 15 IU/L (3-35); SGPT/ALT 16 U/L (12-78); SODIUM 141 mmol/L (136-145); TOTAL PROTEIN 6.6 gm/dL (6.4-8.2)
[2021-11-15 17:21] LABS: BILIRUBIN Negative (Negative); BLOOD Negative (Negative); CLARITY Clear (Clear); COLOR Yellow (Yellow); GLUCOSE Negative (Negative); KETONE Trace (Negative); LEUKO ESTERASE Negative (Negative); NITRITE Negative (Negative); UROBILINOGEN 0.2 E.U./dl (0.0-1.0)
[2021-11-15 17:29] LABS: EPITHELIAL CELLS 0-2; WBC 0-2 wbc/hpf (0-5)
[2021-11-15] MEDS ORDERED: ORTIKOS9 MG PO (18:20)
[2021-11-15] MEDS ORDERED: LIPITOR80 MG PO (18:20)
[2021-11-15] MEDS ORDERED: LOMOTIL 2.5-0.1 EACH PO (18:27)
[2021-11-15] MEDS ORDERED: LEXAPRO20 MG PO (18:27)
[2021-11-15] MEDS ORDERED: XANAX1 MG PO (18:28)
[2021-11-15] MEDS ORDERED: TRAZODONE100 MG PO (18:28)
[2021-11-15] MEDS ORDERED: ONE-DAILY MULT1 EAC1 PO (18:28)
[2021-11-15] MEDS ORDERED: POTASSIUM CHLO20 ME3 PO (18:30)
[2021-11-15 20:10] VITALS: BP 105/36
[2021-11-15] MEDS ORDERED: BENTYL PO (20:33)
[2021-11-16] VITALS: BP 126/47
[2021-11-16 06:15] LABS: BASO # 0.1 10*3/uL (0.0-0.1); BASO % 0.6 % (0.0-1.0); EOS # 0.2 10*3/uL (0.0-0.4); EOS % 2.2 % (1.0-4.0); LYMPH % 10.6 % (27.0-41.0); MEAN CELL VOLUME 100.3 fl (81.0-99.0); MEAN CORPUSCULAR HGB 33.2 pg (27.0-31.0); MEAN CORPUSCULAR HGB CONC 33.1 g/dl (33.0-37.0); MEAN PLATELET VOLUME 9.6 fl (9.6-12.3); MONO # 0.5 10*3/uL (0.1-1.0); MONO % 4.8 % (3.0-9.0); NEUT # 7.9 10*3/uL (2.3-7.9); NEUT % 81.5 % (47.0-73.0); PLATELET COUNT AUTOMATED 241 10*3/uL (130-400); RED BLOOD COUNT 3.89 10*6/uL (4.10-5.10); RED CELL DISTRI WIDTH 12.4 % (0-14.5); WHITE BLOOD COUNT 9.7 10*3/uL (4.8-10.8)
[2021-11-16 06:34] LABS: ALKALINE PHOSPHATASE 118 U/L (45-117); BUN 8 mg/dl (7-24); CHLORIDE 112 mmol/L (98-107); CREATININE 0.52 mg/dL (0.55-1.02); POTASSIUM 3.5 mmol/L (3.5-5.1); SGOT/AST 14 IU/L (3-35); SGPT/ALT 13 U/L (12-78); SODIUM 144 mmol/L (136-145); TOTAL PROTEIN 6.5 gm/dL (6.4-8.2)
[2021-11-16 08:00] VITALS: BP 111/43
[2021-11-16] MEDS ORDERED: PROLIA60 MG/M1 SC (09:16)
[2021-11-16 12:00] VITALS: BP 105/46
[2021-11-16 16:00] VITALS: BP 100/48
[2021-11-16 20:00] VITALS: BP 124/40
[2021-11-17] VITALS: BP 100/43
[2021-11-17 06:29] LABS: BASO # 0.1 10*3/uL (0.0-0.1); BASO % 0.9 % (0.0-1.0); EOS # 0.2 10*3/uL (0.0-0.4); EOS % 2.7 % (1.0-4.0); HEMATOCRIT 39.7 % (37.0-47.0); LYMPH # 1.1 10*3/uL (1.3-4.4); LYMPH % 16.4 % (27.0-41.0); MEAN CELL VOLUME 101.3 fl (81.0-99.0); MEAN CORPUSCULAR HGB 32.9 pg (27.0-31.0); MEAN CORPUSCULAR HGB CONC 32.5 g/dl (33.0-37.0); MEAN PLATELET VOLUME 9.2 fl (9.6-12.3); MONO # 0.4 10*3/uL (0.1-1.0); MONO % 6.4 % (3.0-9.0); NEUT % 73.3 % (47.0-73.0); PLATELET COUNT AUTOMATED 236 10*3/uL (130-400); RED BLOOD COUNT 3.92 10*6/uL (4.10-5.10); RED CELL DISTRI WIDTH 12.5 % (0-14.5); WHITE BLOOD COUNT 6.8 10*3/uL (4.8-10.8)
[2021-11-17 06:38] LABS: BUN 7 mg/dl (7-24); CHLORIDE 112 mmol/L (98-107); CREATININE 0.44 mg/dL (0.55-1.02); POTASSIUM 3.2 mmol/L (3.5-5.1); SODIUM 146 mmol/L (136-145)
[2021-11-17 08:00] VITALS: BP 108/49
[2021-11-17 12:00] VITALS: BP 107/43
[2021-11-17] MEDS ORDERED: CIPRO500 MG PO (15:05)
[2021-11-17] MEDS ORDERED: METRONIDAZOLE500 M1 PO (15:05)
[2021-11-17 15:59] VITALS: BP 110/66
== END 2021-11-17 16:17 | disposition home or self-care (01) | DRG 391 ==
LOC: ED 13:59 → 4E 17:44 → EDHOLD 17:44 → 4E 18:35
PROVIDERS: Internal Medicine; Student in an Organized Health Care Education/Training Program; ADMIT Internal Medicine; ATTEND Internal Medicine
DX: K57.20 Diverticulitis of large intestine with perforation and abscess without bleeding (principal); E43 Unspecified severe protein-calorie malnutrition; K51.919 Ulcerative colitis, unspecified with unspecified complications; E87.0 Hyperosmolality and hypernatremia; K21.9 Gastro-esophageal reflux disease without esophagitis; M19.90 Unspecified osteoarthritis, unspecified site; E78.5 Hyperlipidemia, unspecified; F41.1 Generalized anxiety disorder; E87.6 Hypokalemia; E87.8 Other disorders of electrolyte and fluid balance, not elsewhere classified; F17.210 Nicotine dependence, cigarettes, uncomplicated; M79.7 Fibromyalgia; G43.909 Migraine, unspecified, not intractable, without status migrainosus; E83.51 Hypocalcemia; Z68.20 Body mass index [BMI] 20.0-20.9, adult; Z88.2 Allergy status to sulfonamides; Z88.8 Allergy status to other drugs, medicaments and biological substances; Z90.49 Acquired absence of other specified parts of digestive tract; Z82.61 Family history of arthritis; Z82.49 Family history of ischemic heart disease and other diseases of the circulatory system; Z83.6 Family history of other diseases of the respiratory system; Z71.6 Tobacco abuse counseling

== ENCOUNTER → 2022-01-13 | Outpatient (CLI) | payer MEDICARE, OTHER ==
[~2022-01-13] MED LIST changes: +LOMOTIL 2.5-0.1 EACH PO; +METRONIDAZOLE500 M1 PO; +ONE-DAILY MULT1 EAC1 PO; +ORTIKOS9 MG PO; +POTASSIUM CHLO20 ME3 PO; +PROLIA60 MG/M1 SC; +TRAZODONE100 MG PO; +XANAX1 MG PO
[2022-01-13 09:56] VITALS: BP 117/46
== END | disposition home or self-care (01) ==
LOC: INJECTION 01:51
PROVIDERS: ATTEND Internal Medicine
DX: M81.0 Age-related osteoporosis without current pathological fracture (principal); K21.9 Gastro-esophageal reflux disease without esophagitis; G43.909 Migraine, unspecified, not intractable, without status migrainosus; M79.7 Fibromyalgia; F17.200 Nicotine dependence, unspecified, uncomplicated

== ENCOUNTER 2022-06-03 09:50 | Emergency (ER) | payer MEDICARE, OTHER ==
[~2022-06-03] VITALS: Ht 162.5 cm; Wt 60.8 kg
[2022-06-03 10:42] LABS: BASO # 0.1 10*3/uL (0.0-0.1); BASO % 0.8 % (0.0-1.0); EOS # 0.1 10*3/uL (0.0-0.4); EOS % 1.8 % (1.0-4.0); HEMATOCRIT 45.8 % (37.0-47.0); LYMPH # 2.3 10*3/uL (1.3-4.4); LYMPH % 32.2 % (27.0-41.0); MEAN CELL VOLUME 102.7 fl (81.0-99.0); MEAN CORPUSCULAR HGB 33.4 pg (27.0-31.0); MEAN CORPUSCULAR HGB CONC 32.5 g/dl (33.0-37.0); MEAN PLATELET VOLUME 8.4 fl (9.6-12.3); MONO # 0.5 10*3/uL (0.1-1.0); MONO % 7.3 % (3.0-9.0); NEUT % 56.5 % (47.0-73.0); PLATELET COUNT AUTOMATED 301 10*3/uL (130-400); RED BLOOD COUNT 4.46 10*6/uL (4.10-5.10); RED CELL DISTRI WIDTH 12.2 % (0-14.5); WHITE BLOOD COUNT 7.1 10*3/uL (4.8-10.8)
[2022-06-03 10:53] LABS: ACT PARTIAL THROMBO TIME 28.3 SECONDS (20.0-32.1); INTERNATIONAL NORM RATIO 0.9 (2.0-3.5)
[2022-06-03 11:05] LABS: ALKALINE PHOSPHATASE 80 U/L (46-116); BUN 9 mg/dl (9-23); CHLORIDE 109 mmol/L (98-107); LIPASE 31 U/L (12-53); POTASSIUM 3.4 mmol/L (3.4-5.1); SGPT/ALT 8 U/L (10-49); TOTAL PROTEIN 6.9 gm/dL (6.0-8.0)
[2022-06-03] MEDS ORDERED: METRONIDAZOLE500 M1 PO (12:58)
[2022-06-03] MEDS ORDERED: CIPRO500 MG PO (12:58)
[2022-06-03] MEDS ORDERED: PHENERGAN25 M3 PO (12:58)
== END 2022-06-03 13:18 | disposition home or self-care (01) ==
LOC: ED 09:50
PROVIDERS: Internal Medicine
DX: K57.32 Diverticulitis of large intestine without perforation or abscess without bleeding (principal); K21.9 Gastro-esophageal reflux disease without esophagitis; F41.9 Anxiety disorder, unspecified; F32.A Depression, unspecified; G43.909 Migraine, unspecified, not intractable, without status migrainosus; M79.7 Fibromyalgia; Z88.2 Allergy status to sulfonamides; Z88.8 Allergy status to other drugs, medicaments and biological substances; Z98.890 Other specified postprocedural states; Z90.49 Acquired absence of other specified parts of digestive tract

== ENCOUNTER → 2022-07-20 | Day surgery (SDC) | payer MEDICARE, OTHER ==
[~2022-07-20] MED LIST changes: +ATORVASTATIN CA10 M1 PO; +CALCIUM CITRATE PO; +DICYCLOMINE HCL10 MG PO; +LEXAPRO10 MG PO; +LIDODERM1 EACH T; +MULTIPLE VITAM1 EAC2 PO; +NEURONTIN100 MG PO; +NEURONTIN300 MG PO; +ONDANSETRON HYDR4 M1 PO; +PHENERGAN25 M3 PO; +ZANTAC PO
[2022-07-20 07:25] VITALS: BP 126/60
[2022-07-20 08:28] VITALS: BP 102/55
[2022-07-20 08:43] VITALS: BP 119/53
[2022-07-20 08:58] VITALS: BP 102/55
== END | disposition home or self-care (01) ==
LOC: SDC 07-16 10:15
PROVIDERS: ATTEND Surgery
DX: Z12.11 Encounter for screening for malignant neoplasm of colon (principal); K29.50 Unspecified chronic gastritis without bleeding; K57.32 Diverticulitis of large intestine without perforation or abscess without bleeding; F32.A Depression, unspecified; Z86.010 Personal history of colon polyps; K21.9 Gastro-esophageal reflux disease without esophagitis; J44.9 Chronic obstructive pulmonary disease, unspecified; F17.210 Nicotine dependence, cigarettes, uncomplicated; Z88.1 Allergy status to other antibiotic agents; M79.7 Fibromyalgia; G43.909 Migraine, unspecified, not intractable, without status migrainosus; E78.5 Hyperlipidemia, unspecified; F43.10 Post-traumatic stress disorder, unspecified; Z79.899 Other long term (current) drug therapy; Z90.49 Acquired absence of other specified parts of digestive tract; Z98.890 Other specified postprocedural states

== ENCOUNTER → 2022-07-22 | Outpatient (CLI) | payer MEDICARE, OTHER | END | disposition home or self-care (01) | LOC: INJECTION 07-14 10:00 | PROVIDERS: ATTEND Physician Assistant | DX: M81.0 Age-related osteoporosis without current pathological fracture (principal) ==

== ENCOUNTER 2022-10-25 11:48 | Emergency (ER) | payer MEDICARE, OTHER ==
[~2022-10-25] VITALS: Ht 165.1 cm; Wt 59.0 kg
[2022-10-25 12:39] LABS: BASO # 0.1 10*3/uL (0.0-0.1); EOS # 0.2 10*3/uL (0.0-0.4); EOS % 2.5 % (1.0-4.0); HEMATOCRIT 48.9 % (37.0-47.0); LYMPH # 2.3 10*3/uL (1.3-4.4); LYMPH % 38.8 % (27.0-41.0); MEAN CELL VOLUME 102.3 fl (81.0-99.0); MEAN CORPUSCULAR HGB 33.5 pg (27.0-31.0); MEAN CORPUSCULAR HGB CONC 32.7 g/dl (33.0-37.0); MEAN PLATELET VOLUME 9.3 fl (9.6-12.3); MONO # 0.3 10*3/uL (0.1-1.0); MONO % 4.8 % (3.0-9.0); NEUT # 3.2 10*3/uL (2.3-7.9); NEUT % 52.6 % (47.0-73.0); PLATELET COUNT AUTOMATED 265 10*3/uL (130-400); RED BLOOD COUNT 4.78 10*6/uL (4.10-5.10)
[2022-10-25 13:42] LABS: ACT PARTIAL THROMBO TIME 27.6 SECONDS (20.0-32.1)
[2022-10-25 13:55] LABS: ALKALINE PHOSPHATASE 72 U/L (46-116); BUN 11 mg/dl (9-23); CHLORIDE 110 mmol/L (98-107); LIPASE 30 U/L (12-53); POTASSIUM 4.3 mmol/L (3.4-5.1); SGPT/ALT 10 U/L (10-49); TOTAL PROTEIN 6.4 gm/dL (6.0-8.0)
[2022-10-25 14:32] LABS: BILIRUBIN Negative (Negative); BLOOD Negative (Negative); CLARITY Clear (Clear); COLOR Yellow (Yellow); GLUCOSE Negative (Negative); KETONE 2+ (Negative); LEUKO ESTERASE Negative (Negative); NITRITE Negative (Negative); SPECIFIC GRAVITY 1.025 (1.001-1.030)
[2022-10-25 15:05] LABS: BACTERIA TRACE; WBC 0-2 wbc/hpf (0-5)
[2022-10-25] MEDS ORDERED: PEPCID AC10 M2 PO (16:12)
[2022-10-25] MEDS ORDERED: REGLAN10 M1 PO (16:12)
== END 2022-10-25 16:53 | disposition home or self-care (01) ==
LOC: ED 11:48
PROVIDERS: Internal Medicine
DX: R10.30 Lower abdominal pain, unspecified (principal); R19.7 Diarrhea, unspecified; K21.9 Gastro-esophageal reflux disease without esophagitis; F41.9 Anxiety disorder, unspecified; F32.A Depression, unspecified; G43.909 Migraine, unspecified, not intractable, without status migrainosus; M79.7 Fibromyalgia; Z88.2 Allergy status to sulfonamides; Z88.8 Allergy status to other drugs, medicaments and biological substances; Z98.890 Other specified postprocedural states; Z90.49 Acquired absence of other specified parts of digestive tract; Z72.0 Tobacco use

== ENCOUNTER → 2022-12-28 | Outpatient (CLI) | payer MEDICARE, OTHER ==
[~2022-12-28] MED LIST changes: +PEPCID AC10 M2 PO; +REGLAN10 M1 PO
== END | disposition home or self-care (01) ==
LOC: RAD 00:23 → MAMMO 10:30
PROVIDERS: ATTEND Physician Assistant
DX: Z12.31 Encounter for screening mammogram for malignant neoplasm of breast (principal); M81.0 Age-related osteoporosis without current pathological fracture

== ENCOUNTER → 2023-01-25 | Outpatient (CLI) | payer MEDICARE, OTHER ==
[2023-01-25 10:50] VITALS: BP 122/45
== END | disposition home or self-care (01) ==
LOC: INJECTION 01-22 11:00
PROVIDERS: ATTEND Physician Assistant
DX: M81.0 Age-related osteoporosis without current pathological fracture (principal); G43.909 Migraine, unspecified, not intractable, without status migrainosus; G62.9 Polyneuropathy, unspecified; F41.9 Anxiety disorder, unspecified; F32.A Depression, unspecified; Z86.73 Personal history of transient ischemic attack (TIA), and cerebral infarction without residual deficits; Z90.49 Acquired absence of other specified parts of digestive tract

== ENCOUNTER 2023-04-01 15:54 | Emergency (ER) | payer MEDICARE, OTHER ==
[~2023-04-01] VITALS: Ht 165.1 cm; Wt 59.4 kg
[2023-04-01 19:56] LABS: BASO # 0.1 10*3/uL (0.0-0.1); BASO % 1.4 % (0.0-1.0); EOS # 0.2 10*3/uL (0.0-0.4); EOS % 3.4 % (1.0-4.0); HEMATOCRIT 43.7 % (37.0-47.0); LYMPH # 2.6 10*3/uL (1.3-4.4); LYMPH % 46.3 % (27.0-41.0); MEAN CELL VOLUME 100.9 fl (81.0-99.0); MEAN CORPUSCULAR HGB 32.6 pg (27.0-31.0); MEAN CORPUSCULAR HGB CONC 32.3 g/dl (33.0-37.0); MONO # 0.2 10*3/uL (0.1-1.0); MONO % 4.1 % (3.0-9.0); NEUT # 2.5 10*3/uL (2.3-7.9); NEUT % 44.4 % (47.0-73.0); PLATELET COUNT AUTOMATED 263 10*3/uL (130-400); RED BLOOD COUNT 4.33 10*6/uL (4.10-5.10); RED CELL DISTRI WIDTH 11.9 % (0-14.5); WHITE BLOOD COUNT 5.6 10*3/uL (4.8-10.8)
[2023-04-01 20:00] LABS: BILIRUBIN Negative (Negative); BLOOD Negative (Negative); CLARITY Clear (Clear); COLOR Yellow (Yellow); GLUCOSE Negative (Negative); KETONE Negative (Negative); LEUKO ESTERASE Negative (Negative); NITRITE Negative (Negative); SPECIFIC GRAVITY 1.025 (1.001-1.030); UROBILINOGEN 0.2 E.U./dl (0.0-1.0)
[2023-04-01 20:16] LABS: ALKALINE PHOSPHATASE 78 U/L (46-116); BUN 11 mg/dl (9-23); CHLORIDE 107 mmol/L (98-107); LIPASE 32 U/L (12-53); POTASSIUM 3.1 mmol/L (3.4-5.1); TOTAL PROTEIN 6.3 gm/dL (6.0-8.0)
[2023-04-01 20:20] LABS: SGPT/ALT < 7 U/L (5-49)
[2023-04-01 20:22] LABS: BACTERIA TRACE; MUCOUS 2+
[2023-04-01] MEDS ORDERED: METRONIDAZOLE500 M1 PO (21:34)
[2023-04-01] MEDS ORDERED: CIPRO500 MG PO (21:34)
== END 2023-04-01 21:51 | disposition home or self-care (01) ==
LOC: ED 15:54
PROVIDERS: Physician Assistant Medical
DX: K57.92 Diverticulitis of intestine, part unspecified, without perforation or abscess without bleeding (principal); G43.909 Migraine, unspecified, not intractable, without status migrainosus; F17.200 Nicotine dependence, unspecified, uncomplicated; Z88.2 Allergy status to sulfonamides; Z88.8 Allergy status to other drugs, medicaments and biological substances; Z79.899 Other long term (current) drug therapy; Z90.49 Acquired absence of other specified parts of digestive tract

== ENCOUNTER 2023-04-04 13:58 | Emergency (ER) | payer MEDICARE, OTHER ==
[~2023-04-04] VITALS: Ht 165.1 cm; Wt 59.0 kg
[2023-04-04 14:39] LABS: BASO # 0.1 10*3/uL (0.0-0.1); BASO % 1.6 % (0.0-1.0); EOS # 0.1 10*3/uL (0.0-0.4); EOS % 2.6 % (1.0-4.0); HEMATOCRIT 44.6 % (37.0-47.0); LYMPH % 40.1 % (27.0-41.0); MEAN CELL VOLUME 100.7 fl (81.0-99.0); MEAN CORPUSCULAR HGB 32.7 pg (27.0-31.0); MEAN CORPUSCULAR HGB CONC 32.5 g/dl (33.0-37.0); MEAN PLATELET VOLUME 9.2 fl (9.6-12.3); MONO # 0.2 10*3/uL (0.1-1.0); MONO % 4.1 % (3.0-9.0); NEUT # 2.5 10*3/uL (2.3-7.9); NEUT % 51.4 % (47.0-73.0); PLATELET COUNT AUTOMATED 251 10*3/uL (130-400); RED BLOOD COUNT 4.43 10*6/uL (4.10-5.10); RED CELL DISTRI WIDTH 11.8 % (0-14.5); WHITE BLOOD COUNT 4.9 10*3/uL (4.8-10.8)
[2023-04-04 15:01] LABS: ALKALINE PHOSPHATASE 80 U/L (46-116); BUN 7 mg/dl (9-23); CHLORIDE 109 mmol/L (98-107); LIPASE 26 U/L (12-53); POTASSIUM 3.2 mmol/L (3.4-5.1); TOTAL PROTEIN 6.3 gm/dL (6.0-8.0)
[2023-04-04 15:02] LABS: SGPT/ALT < 7 U/L (5-49)
[2023-04-04 15:27] LABS: BILIRUBIN Negative (Negative); BLOOD Negative (Negative); CLARITY Clear (Clear); COLOR Yellow (Yellow); GLUCOSE Negative (Negative); KETONE Negative (Negative); LEUKO ESTERASE Trace (Negative); NITRITE Negative (Negative); SPECIFIC GRAVITY >= 1.030 (1.001-1.030); UROBILINOGEN 0.2 E.U./dl (0.0-1.0)
[2023-04-04 15:36] LABS: EPITHELIAL CELLS 0-2; WBC 0-2 wbc/hpf (0-5)
== END 2023-04-04 16:06 | disposition home or self-care (01) ==
LOC: ED 13:58
PROVIDERS: Physician Assistant Medical
DX: K59.00 Constipation, unspecified (principal); K21.9 Gastro-esophageal reflux disease without esophagitis; F41.9 Anxiety disorder, unspecified; F32.A Depression, unspecified; G43.909 Migraine, unspecified, not intractable, without status migrainosus; M79.7 Fibromyalgia; Z88.2 Allergy status to sulfonamides; Z88.8 Allergy status to other drugs, medicaments and biological substances; Z98.890 Other specified postprocedural states; Z90.49 Acquired absence of other specified parts of digestive tract; Z72.0 Tobacco use

== ENCOUNTER 2023-07-17 16:15 | Emergency (ER) | payer MEDICARE, OTHER ==
[~2023-07-17] VITALS: Ht 165.1 cm; Wt 54.4 kg
[2023-07-17] MEDS ORDERED: Ondansetron Hydrochloride 4 MG/2 ML VIAL IV ONE (16:35)
[2023-07-17] MEDS ORDERED: MORPHINE Sulfate 2 MG/ML SYR IV ONE (16:35)
[2023-07-17] MEDS ORDERED: SODIUM CHLORIDE 0.9% 1,000 ML IV ONE (16:35)
[2023-07-17 16:46] LABS: BASO # 0.1 10*3/uL (0.0-0.1); BASO % 1.3 % (0.0-1.0); EOS # 0.2 10*3/uL (0.0-0.4); HEMATOCRIT 48.5 % (37.0-47.0); LYMPH # 2.8 10*3/uL (1.3-4.4); MEAN CELL VOLUME 100.2 fl (81.0-99.0); MONO # 0.2 10*3/uL (0.1-1.0); MONO % 4.3 % (3.0-9.0); NEUT # 2.1 10*3/uL (2.3-7.9); NEUT % 39.2 % (47.0-73.0); PLATELET COUNT AUTOMATED 284 10*3/uL (130-400); RED BLOOD COUNT 4.84 10*6/uL (4.10-5.10); RED CELL DISTRI WIDTH 12.6 % (0-14.5); WHITE BLOOD COUNT 5.3 10*3/uL (4.8-10.8)
[2023-07-17 17:08] LABS: ALKALINE PHOSPHATASE 81 U/L (46-116); BUN 10 mg/dl (9-23); CHLORIDE 108 mmol/L (98-107); LIPASE 40 U/L (12-53); POTASSIUM 3.4 mmol/L (3.4-5.1); TOTAL PROTEIN 6.9 gm/dL (6.0-8.0)
[2023-07-17 17:18] LABS: SGPT/ALT < 7 U/L (5-49)
[2023-07-17 17:20] LABS: BILIRUBIN Negative (Negative); BLOOD Negative (Negative); CLARITY Clear (Clear); COLOR Yellow (Yellow); GLUCOSE Negative (Negative); KETONE Trace (Negative); LEUKO ESTERASE 1+ (Negative); NITRITE Negative (Negative)
[2023-07-17 17:46] LABS: BACTERIA TRACE; RBC 0-2 rbc/hpf (0-2)
[2023-07-17] MEDS ORDERED: PREDNISONE10 MG PO (18:16)
[2023-07-17] MEDS ORDERED: Ciprofloxacin Hydrochloride 500 MG TAB PO ONE (18:20)
[2023-07-17] MEDS ORDERED: predniSONE 20 MG TAB PO ONE (18:20)
[2023-07-17] MEDS ORDERED: METRONIDAZOLE 500 MG TAB PO ONE (18:20)
== END 2023-07-17 18:48 | disposition home or self-care (01) ==
LOC: ED 16:15
PROVIDERS: Physician Assistant Medical
DX: K52.9 Noninfective gastroenteritis and colitis, unspecified (principal); R35.0 Frequency of micturition; F17.200 Nicotine dependence, unspecified, uncomplicated; Z88.1 Allergy status to other antibiotic agents; Z88.2 Allergy status to sulfonamides; Z79.2 Long term (current) use of antibiotics; Z79.899 Other long term (current) drug therapy

== ENCOUNTER 2023-07-24 13:06 | Emergency (ER) | payer MEDICARE, OTHER ==
[~2023-07-24] VITALS: Ht 165.1 cm; Wt 54.4 kg
[2023-07-24] MEDS ORDERED: MIRALAX17 GM PO (13:41)
[2023-07-24] MEDS ORDERED: FLONASE ALLERG9.9 ML NAS (13:42)
[2023-07-24] MEDS ORDERED: VITAMIN B121000 MC3 PO (13:43)
[2023-07-24] MEDS ORDERED: SODIUM CHLORIDE 0.9% 1,000 ML IV ONE (14:05)
[2023-07-24] MEDS ORDERED: Ketorolac Tromethamine 30 MG/ML VIAL IV ONE (14:05)
[2023-07-24] MEDS ORDERED: Ondansetron Hydrochloride 4 MG/2 ML VIAL IV ONE (14:05)
[2023-07-24] MEDS ORDERED: IOHEXOL 300 MG/ML 100 ML VIAL IV ONE (14:05)
[2023-07-24 14:20] LABS: BASO % 0.4 % (0.0-1.0); EOS # 0.2 10*3/uL (0.0-0.4); HEMATOCRIT 50.1 % (37.0-47.0); LYMPH # 2.9 10*3/uL (1.3-4.4); LYMPH % 36.5 % (27.0-41.0); MEAN CELL VOLUME 98.8 fl (81.0-99.0); MEAN CORPUSCULAR HGB CONC 32.3 g/dl (33.0-37.0); MONO # 0.3 10*3/uL (0.1-1.0); MONO % 3.2 % (3.0-9.0); NEUT # 4.6 10*3/uL (2.3-7.9); NEUT % 57.5 % (47.0-73.0); PLATELET COUNT AUTOMATED 279 10*3/uL (130-400); RED BLOOD COUNT 5.07 10*6/uL (4.10-5.10); RED CELL DISTRI WIDTH 13.1 % (0-14.5)
[2023-07-24 14:41] LABS: ALKALINE PHOSPHATASE 75 U/L (46-116); BUN 11 mg/dl (9-23); CHLORIDE 108 mmol/L (98-107); LIPASE 43 U/L (12-53); POTASSIUM 3.3 mmol/L (3.4-5.1); SGPT/ALT 8 U/L (5-49); TOTAL PROTEIN 6.5 gm/dL (6.0-8.0)
[2023-07-24 14:53] LABS: BILIRUBIN Negative (Negative); BLOOD Negative (Negative); CLARITY Clear (Clear); COLOR Yellow (Yellow); GLUCOSE Negative (Negative); KETONE Negative (Negative); LEUKO ESTERASE Negative (Negative); NITRITE Negative (Negative); PH 6.5 (4.5-8.0); SPECIFIC GRAVITY >= 1.030 (1.001-1.030); UROBILINOGEN 0.2 E.U./dl (0.0-1.0)
[2023-07-24 15:00] LABS: BACTERIA TRACE; WBC 0-2 wbc/hpf (0-5)
[2023-07-24] MEDS ORDERED: POTASSIUM CHLORIDE 20 MEQ TAB PO ONE (15:50)
== END 2023-07-24 16:56 | disposition home or self-care (01) ==
LOC: ED 13:06
PROVIDERS: Nurse Practitioner
DX: R10.9 Unspecified abdominal pain (principal); R11.0 Nausea; R53.1 Weakness; F17.200 Nicotine dependence, unspecified, uncomplicated; Z88.1 Allergy status to other antibiotic agents; Z88.2 Allergy status to sulfonamides; Z79.899 Other long term (current) drug therapy; Z90.49 Acquired absence of other specified parts of digestive tract

== ENCOUNTER 2024-02-01 11:59 | Emergency (ER) | payer MEDICARE, OTHER ==
[~2024-02-01] VITALS: Ht 165.1 cm; Wt 53.5 kg
[~2024-02-01 11:59] MED LIST changes: +FLONASE ALLERG9.9 ML NAS; +MIRALAX17 GM PO; +VITAMIN B121000 MC3 PO
[2024-02-01] MEDS ORDERED: IOHEXOL 300 MG/ML 100 ML VIAL IV ONE (12:25)
[2024-02-01 12:40] LABS: BASO # 0.1 10*3/uL (0.0-0.1); BASO % 1.1 % (0.0-1.0); EOS # 0.2 10*3/uL (0.0-0.4); EOS % 2.7 % (1.0-4.0); HEMATOCRIT 43.5 % (37.0-47.0); LYMPH # 2.6 10*3/uL (1.3-4.4); MEAN CELL VOLUME 100.5 fl (81.0-99.0); MEAN CORPUSCULAR HGB 32.6 pg (27.0-31.0); MEAN CORPUSCULAR HGB CONC 32.4 g/dl (33.0-37.0); MEAN PLATELET VOLUME 8.7 fl (9.6-12.3); MONO # 0.4 10*3/uL (0.1-1.0); NEUT # 4.8 10*3/uL (2.3-7.9); PLATELET COUNT AUTOMATED 333 10*3/uL (130-400); RED BLOOD COUNT 4.33 10*6/uL (4.10-5.10); RED CELL DISTRI WIDTH 12.6 % (0-14.5); WHITE BLOOD COUNT 8.1 10*3/uL (4.8-10.8)
[2024-02-01 13:01] LABS: BUN 17 mg/dl (9-23); CHLORIDE 107 mmol/L (98-107); POTASSIUM 2.8 mmol/L (3.4-5.1)
[2024-02-01] MEDS ORDERED: Ondansetron Hydrochloride 4 MG/2 ML VIAL IV ONE (13:40)
[2024-02-01] MEDS ORDERED: METRONIDAZOLE500 M1 PO (14:56)
[2024-02-01] MEDS ORDERED: CIPRO500 MG PO (14:56)
[2024-02-01] MEDS ORDERED: POTASSIUM CHLORIDE 20 MEQ TAB PO ONE (15:00)
== END 2024-02-01 15:05 | disposition home or self-care (01) ==
LOC: ED 11:59
PROVIDERS: Internal Medicine
DX: K52.9 Noninfective gastroenteritis and colitis, unspecified (principal); E87.6 Hypokalemia; K21.9 Gastro-esophageal reflux disease without esophagitis; F41.9 Anxiety disorder, unspecified; F32.A Depression, unspecified; G43.909 Migraine, unspecified, not intractable, without status migrainosus; M79.7 Fibromyalgia; Z88.1 Allergy status to other antibiotic agents; Z88.2 Allergy status to sulfonamides; Z88.8 Allergy status to other drugs, medicaments and biological substances; Z98.890 Other specified postprocedural states; Z90.49 Acquired absence of other specified parts of digestive tract; Z72.0 Tobacco use

== ENCOUNTER 2024-04-18 16:30 | Emergency (ER) | payer OTHER, MEDICARE ==
[~2024-04-18] VITALS: Ht 165.1 cm; Wt 52.2 kg
[2024-04-18] MEDS ORDERED: HYDROmorphONE Hydrochloride 0.5 MG/0.5 ML SYRINGE IV ONE (17:30)
[2024-04-18] MEDS ORDERED: Ondansetron Hydrochloride 4 MG/2 ML VIAL IV ONE (17:30)
[2024-04-18] MEDS ORDERED: SODIUM CHLORIDE 0.9% 500 ML IV ONE (17:30)
[2024-04-18 17:54] LABS: BASO # 0.1 10*3/uL (0.0-0.1); BASO % 1.2 % (0.0-1.0); EOS # 0.1 10*3/uL (0.0-0.4); EOS % 2.9 % (1.0-4.0); HEMATOCRIT 38.3 % (37.0-47.0); MEAN CELL VOLUME 97.5 fl (81.0-99.0); MEAN CORPUSCULAR HGB 32.3 pg (27.0-31.0); MEAN CORPUSCULAR HGB CONC 33.2 g/dl (33.0-37.0); MEAN PLATELET VOLUME 8.9 fl (9.6-12.3); MONO # 0.2 10*3/uL (0.1-1.0); MONO % 3.7 % (3.0-9.0); NEUT # 2.3 10*3/uL (2.3-7.9); NEUT % 46.8 % (47.0-73.0); PLATELET COUNT AUTOMATED 266 10*3/uL (130-400); RED BLOOD COUNT 3.93 10*6/uL (4.10-5.10); RED CELL DISTRI WIDTH 12.1 % (0-14.5); WHITE BLOOD COUNT 4.9 10*3/uL (4.8-10.8)
[2024-04-18 18:16] LABS: ALKALINE PHOSPHATASE 131 U/L (46-116); BUN 11 mg/dl (9-23); CHLORIDE 107 mmol/L (98-107); LIPASE 24 U/L (12-53); POTASSIUM 2.6 mmol/L (3.4-5.1); TOTAL PROTEIN 5.5 gm/dL (6.0-8.0)
[2024-04-18 18:20] LABS: SGPT/ALT < 7 U/L (5-49)
[2024-04-18] MEDS ORDERED: CLINDAMYCIN HC300 MG PO (19:16)
[2024-04-18] MEDS ORDERED: K-TAB20 MEQ PO (19:16)
[2024-04-18] MEDS ORDERED: POTASSIUM CHLORIDE 20 MEQ TAB PO ONE (19:20)
[2024-04-18] MEDS ORDERED: CLINDAMYCIN HCL 300 MG CAPSULE PO ONE (19:20)
== END 2024-04-18 19:42 | disposition home or self-care (01) ==
LOC: ED 16:30
PROVIDERS: Nurse Practitioner Family
DX: R10.84 Generalized abdominal pain (principal); K04.7 Periapical abscess without sinus; E87.6 Hypokalemia; K21.9 Gastro-esophageal reflux disease without esophagitis; E78.5 Hyperlipidemia, unspecified; G43.909 Migraine, unspecified, not intractable, without status migrainosus; F32.9 Major depressive disorder, single episode, unspecified; F17.200 Nicotine dependence, unspecified, uncomplicated; Z88.1 Allergy status to other antibiotic agents; Z88.2 Allergy status to sulfonamides; Z88.8 Allergy status to other drugs, medicaments and biological substances; Z79.2 Long term (current) use of antibiotics; Z79.899 Other long term (current) drug therapy; Z90.49 Acquired absence of other specified parts of digestive tract

== ENCOUNTER → 2024-06-14 | Outpatient (CLI) | payer MEDICARE, OTHER ==
[~2024-06-14] MED LIST changes: +CLINDAMYCIN HC300 MG PO
== END | disposition home or self-care (01) ==
LOC: CARD 02:01 → MAMMO 11:30
PROVIDERS: ATTEND Physician Assistant
DX: Z12.31 Encounter for screening mammogram for malignant neoplasm of breast (principal); R00.2 Palpitations

== ENCOUNTER 2024-11-28 15:51 | Emergency (ER) | payer MEDICARE, OTHER ==
[~2024-11-28] VITALS: Ht 160 cm; Wt 55.3 kg
[~2024-11-28 15:51] MED LIST changes: +PRISTIQ100 MG PO; +TERIPARATIDE SQ
[2024-11-28] MEDS ORDERED: BUDESONIDE EC3 MG PO (16:13)
[2024-11-28] MEDS ORDERED: IOHEXOL 300 MG/ML 100 ML VIAL IV ONE (17:00)
[2024-11-28 17:06] LABS: BASO # 0.1 10*3/uL (0.0-0.1); BASO % 1.1 % (0.0-1.0); EOS # 0.1 10*3/uL (0.0-0.4); EOS % 1.7 % (1.0-4.0); MEAN CELL VOLUME 99.8 fl (81.0-99.0); MEAN CORPUSCULAR HGB 32.3 pg (27.0-31.0); MEAN PLATELET VOLUME 8.7 fl (9.6-12.3); MONO # 0.2 10*3/uL (0.1-1.0); MONO % 2.3 % (3.0-9.0); NEUT # 4.3 10*3/uL (2.3-7.9); NEUT % 66.2 % (47.0-73.0); NUCLEATED RED BLOOD CELL 0.0 % (0.0-0.0); NUCLEATED RED BLOOD CELL 0.0 10*3/uL (0.0-0.0); PLATELET COUNT AUTOMATED 299 10*3/uL (130-400); RED CELL DISTRI WIDTH 12.7 % (0-14.5)
[2024-11-28 17:24] LABS: BILIRUBIN Negative (Negative); BLOOD Negative (Negative); CLARITY Clear (Clear); COLOR Yellow (Yellow); KETONE Negative (Negative); LEUKO ESTERASE Negative (Negative); NITRITE Negative (Negative); PH 5.0 (4.5-8.0); SPECIFIC GRAVITY 1.020 (1.001-1.030); UROBILINOGEN 0.2 E.U./dl (0.0-1.0)
[2024-11-28 17:26] LABS: BUN 10 mg/dl (9-23); SGPT/ALT 8 U/L (5-49)
[2024-11-28 17:35] LABS: BACTERIA TRACE; MUCOUS 1+; WBC 0-2 wbc/hpf (0-5)
[2024-11-28] MEDS ORDERED: Ondansetron Hydrochloride 4 MG/2 ML VIAL IV ONE (17:35)
[2024-11-28] MEDS ORDERED: Metoclopramide Hydrochloride 10 MG/2 ML VIAL IV ONE (19:10)
[2024-11-28] MEDS ORDERED: diphenhydrAMINE hydrochloride 50 MG/ML VIAL IV ONE (19:10)
== END 2024-11-28 19:18 | disposition home or self-care (01) ==
LOC: ED 15:51
PROVIDERS: Internal Medicine
DX: R10.11 Right upper quadrant pain (principal); K21.9 Gastro-esophageal reflux disease without esophagitis; R10.84 Generalized abdominal pain; F41.9 Anxiety disorder, unspecified; F32.A Depression, unspecified; G43.909 Migraine, unspecified, not intractable, without status migrainosus; M79.7 Fibromyalgia; F17.210 Nicotine dependence, cigarettes, uncomplicated; Z90.49 Acquired absence of other specified parts of digestive tract; Z88.1 Allergy status to other antibiotic agents; Z88.2 Allergy status to sulfonamides; Z88.8 Allergy status to other drugs, medicaments and biological substances